=== PATIENT | male | born 1975 | race Caucasian/White ===

== ENCOUNTER 2025-03-01 06:44 | Day surgery (SDC) | payer OTHER ==
[2025-02-28 11:50] VITALS: BMI 26.4
[2025-03-01] MEDS ORDERED: AFRIN NASAL MIST 15 ML BOT ONE ×2 (07:01→07:39)
[2025-03-01] MEDS ORDERED: Lidocaine 1% w/Epinephrine 1:200K 30 ML VIAL ONE (07:01)
[2025-03-01] MEDS ORDERED: SUGAMMADEX SODIUM 200 MG/2 ML VIAL ONE (08:35)
[2025-03-01] MEDS ORDERED: Lidocaine 1% PF 5 ML VIAL ONE (08:35)
[2025-03-01] MEDS ORDERED: Ondansetron PF 4 MG/2 ML Vial ONE (08:35)
[2025-03-01] MEDS ORDERED: Rocuronium Bromide 10 MG/ML (10ML VIAL) ONE (08:35)
[2025-03-01] MEDS ORDERED: PROPOFOL 40 ML ONE (08:36)
== END 2025-03-01 12:05 | disposition home or self-care (01) ==
LOC: CSHSDC 06:44
PROVIDERS: ATTEND Specialist
DX: J32.4 Chronic pansinusitis (principal); J34.3 Hypertrophy of nasal turbinates; J45.909 Unspecified asthma, uncomplicated; Q18.1 Preauricular sinus and cyst; G44.209 Tension-type headache, unspecified, not intractable; M54.81 Occipital neuralgia; Z98.890 Other specified postprocedural states; Z79.51 Long term (current) use of inhaled steroids
CPT/HCPCS: J0169; J1010; J1100; J2405; J2704; J3010